=== PATIENT | female | born 1975 | race Caucasian/White ===

== ENCOUNTER 2017-10-07 15:01 | Emergency (ER) | payer SELFPAY ==
[~2017-10-07] VITALS: Ht 167.6 cm; Wt 58.0 kg
[~2017-10-07 15:01] MED LIST: BACT800T5 PO; CLIN1CAP5 PO
[2017-10-07 15:31] VITALS: BP 101/62; PULSE 62; RESP 18; TEMP 98.2; O2SAT 100
--- NOTE | 2017-10-07 17:34 | PD ---
HPI Chief Complaint: Skin Problem Time Seen by Provider: 17:02 Travel History International Travel<30 days: No Contact w/Intl Traveler<30days: No Traveled to known affect area: No History of Present Illness HPI 42-year-old female came to the emergency room with history of multiple sores on bilateral upper extremity. Patient says that this is been going on for past couple of months. However the reason she came in today is because 1 of the sources draining significantly and causing shooting pain up her arm. Patient told me that she went to [facility] 1 month ago and was given clindamycin. She took the medication and finish the course. The source had gotten better temporarily and then came back. Patient does have history of IV drug abuse. She was extremely anxious and pacing up and down in the room. Did not want the nurse to examine her upper extremities and asked me not to touch her sores either. Patient denies of any fever or chills. Vital signs were stable. As I was finishing up my history and physical patient told me that she needs to catch a bus and hence she does not have a lot of time. She is just here for antibiotic Bactrim and amoxicillin. [facility] Past Medical History Narrative Medical List of her past medical, surgical, social and family history is reviewed from the nursing note. Medical History: Denies Significant Hx Diminished Hearing: No Reproductive: Yes ([employer]) ?: Not Past Surgical History Surgical History: No Previous Surgery Social History Alcohol Use: No Tobacco Use: Yes (1 ppd) Substance Use: Yes (marijuana regularly, quit IV durg use(morphine and heroin) 4 mos ago) Allergies-Medications (Allergen,Severity, Reaction): Coded Allergies: codeine (Unverified Allergy, Severe, Hives, 10/08/17) hydrocodone (Unverified Allergy, Mild, HIVES, 10/08/17) Comments List of her allergies reviewed from the nursing note. Reported Meds & Prescriptions Reported Meds & Active Scripts Active Mupirocin Topical (Mupirocin) 2 % Oint 1 Applic TOPICAL BID Keflex (Cephalexin) 500 Mg Cap 500 Mg PO Q12H Bactrim DS (Sulfamethoxazole-Trimethoprim) 800-160 Mg Tab 1 Tab PO BID Narrative Medication List of her home medications reviewed from the nursing note. Review of Systems Except as stated in HPI: all other systems reviewed are Neg Physical Exam Narrative GENERAL: Awake, alert, anxious, moderate distress, restless SKIN: Focused skin assessment warm/dry. Multiple dime to quarter size open sores/ulcers with serosanguineous base on the volar aspect of the bilateral upper extremities. There is one abscess on the wrist on the radial aspect that is fluctuant. All the sores seem to be superficial to an underlying vein. Patient has multiple needle track bui as well. HEAD: Atraumatic. Normocephalic. EYES: Pupils equal and round. No scleral icterus. No injection or drainage. ENT: No nasal bleeding or discharge. Mucous membranes pink and moist. NECK: Trachea midline. No JVD. CARDIOVASCULAR: Regular rate and rhythm. No murmur appreciated. RESPIRATORY: No accessory muscle use. Clear to auscultation. Breath sounds equal bilaterally. GASTROINTESTINAL: Abdomen soft, non-tender, nondistended. Hepatic and splenic margins not palpable. MUSCULOSKELETAL: No obvious deformities. No clubbing. No cyanosis. No edema. NEUROLOGICAL: Awake and alert. No obvious cranial nerve deficits. Motor grossly within normal limits. Normal speech. PSYCHIATRIC: insight and judgment normal. Extremely anxious and restless Data Data Last Documented VS Vital Signs Date Time Temp Pulse Resp B/P (MAP) Pulse Ox O2 Delivery O2 Flow Rate FiO2 10/07/17 16:55 16 10/07/17 15:31 98.2 62 101/62 (75) 100 MDM Medical Decision Making Medical Screen Exam Complete: Yes Emergency Medical Condition: Yes Medical Record Reviewed: Yes Differential Diagnosis Disseminated staph infection, abscess, MRSA infection, IV drug abuse with skin infection Narrative Course 6 PM I explained to the patient that she would require blood test, blood cultures since these are probably infections developed from IV drug abuse. She would get IV antibiotic in the process and eventually if decision is made to to discharge her home she would be given prescription for antibiotic. Patient did not want to wait to get all these tests done. I had asked her to let the nurse know about her final decision but even before the nurse went to talk to her in the room patient was gone. Patient was in full capacity to make decisions for herself. She understood the risks of leaving without tests and treatment. Procedures EKG Prior to Arrival: No Diagnosis Primary Impression: IV drug abuse Additional Impressions: Skin ulcer of multiple sites Qualified Codes: L98.499 - Non-pressure chronic ulcer of skin of other sites with unspecified severity Abscess Possible disseminated staph infection Disposition: 07 AGAINST MEDICAL ADVICE Condition: Serious Braden Moss MD Oct 07, 2017 17:34
[2017-10-08] MEDS ORDERED: MUPI2OIN TOPICAL (21:53)
[2017-10-08] MEDS ORDERED: BACT800T5 PO (21:53)
[2017-10-08] MEDS ORDERED: CEPH-460 PO (21:53)
== END 2017-10-07 17:40 | disposition left against medical advice (07) ==
LOC: NEPD 15:01
DX: F19.10 Other psychoactive substance abuse, uncomplicated (principal); L98.499 Non-pressure chronic ulcer of skin of other sites with unspecified severity; L02.419 Cutaneous abscess of limb, unspecified; F12.90 Cannabis use, unspecified, uncomplicated; F17.200 Nicotine dependence, unspecified, uncomplicated; Z53.20 Procedure and treatment not carried out because of patient's decision for unspecified reasons
CPT/HCPCS: 99281

== ENCOUNTER 2017-10-08 17:49 | Emergency (ER) | payer SELFPAY ==
[~2017-10-08] VITALS: Ht 167.6 cm; Wt 60.0 kg
[2017-10-08 18:30] VITALS: BP 101/50; PULSE 67; RESP 16; TEMP 98.4; O2SAT 98
[2017-10-08] MEDS ORDERED: CEPHALEXIN MONOHYDRATE 500 MG CAP PO ONE (21:45)
[2017-10-08] MEDS ORDERED: SULFAMETHOXAZOLE-TRIMETHOPRIM DS 800-160 MG TAB PO ONE (21:45)
[2017-10-08] MEDS ORDERED: CEPH-460 PO (21:53)
[2017-10-08] MEDS ORDERED: MUPI2OIN TOPICAL (21:53)
[2017-10-08] MEDS ORDERED: BACT800T5 PO (21:53)
--- NOTE | 2017-10-08 21:54 | PD ---
HPI Chief Complaint: Skin Problem Time Seen by Provider: 21:20 Travel History International Travel<30 days: No Contact w/Intl Traveler<30days: No Traveled to known affect area: No History of Present Illness HPI Patient is a 42-year-old female presenting to the emergency department for evaluation of skin ulcerations. Patient reportedly uses IV heroin. She states that the ulcerations started 1 week ago, they are spontaneously draining. She states that she has been cleaning them with water only and applying Band-Aids. She denies any fever, chills, nausea, vomiting. She states they normally drain and then scab up. Symptom onset was gradual, symptoms are moderate in nature. Symptoms are exacerbated by IV drug use. She has no other complaints at this time. Patient is requesting oral antibiotics only. [facility] Past Medical History Diminished Hearing: No Reproductive: Yes ([employer]) Immunizations Current: Yes ?: Not Past Surgical History Surgical History: No Previous Surgery Social History Alcohol Use: No Tobacco Use: Yes (1 ppd) Substance Use: Yes (marijuana, IV durg use morphine and heroin) Allergies-Medications (Allergen,Severity, Reaction): Coded Allergies: codeine (Unverified Allergy, Severe, Hives, 10/08/17) hydrocodone (Unverified Allergy, Mild, HIVES, 10/08/17) Reported Meds & Prescriptions Reported Meds & Active Scripts Active No Active Prescriptions or Reported Medications Review of Systems Except as stated in HPI: all other systems reviewed are Neg Skin: Positive Change in Pigmentation, Positive Lesions Physical Exam Narrative GENERAL: Well-developed, well-nourished, alert female. Presenting in no acute distress. SKIN: Warm and dry. Patient has 5 superficial ulcerations to the left forearm distal to the elbow from 1 cm to 2 cm, draining purulent drainage. 1 cm of induration surrounding the area of ulcerations. No fluctuance noted. Patient also has scabbed lesions to the right forearm HEAD: Atraumatic. Normocephalic. EYES: Pupils equal and round. No scleral icterus. No injection or drainage. ENT: No nasal bleeding or discharge. Mucous membranes pink and moist. NECK: Trachea midline. No JVD. CARDIOVASCULAR: Regular rate and rhythm. RESPIRATORY: No accessory muscle use. Clear to auscultation. Breath sounds equal bilaterally. GASTROINTESTINAL: Abdomen soft, non-tender, nondistended. Hepatic and splenic margins not palpable. MUSCULOSKELETAL: Extremities without clubbing, cyanosis, or edema. No obvious deformities. NEUROLOGICAL: Awake and alert. No obvious cranial nerve deficits. Motor grossly within normal limits. Five out of 5 muscle strength in the arms and legs. Normal speech. PSYCHIATRIC: Appropriate mood and affect; insight and judgment normal. Data Data Last Documented VS Vital Signs Date Time Temp Pulse Resp B/P (MAP) Pulse Ox O2 Delivery O2 Flow Rate FiO2 10/08/17 18:30 98.4 67 16 101/50 (67) 98 Orders Orders Sulfamet-Trimeth Ds 800-160 Mg (Bactrim (10/08/17 21:45) Cephalexin (Keflex) (10/08/17 21:45) MDM Medical Decision Making Medical Screen Exam Complete: Yes Emergency Medical Condition: Yes Interpretation(s) Vital Signs Date Time Temp Pulse Resp B/P (MAP) Pulse Ox O2 Delivery O2 Flow Rate FiO2 10/08/17 18:30 98.4 67 16 101/50 (67) 98 Differential Diagnosis Cellulitis versus abscess versus dermatitis versus metabolic abnormality versus other Narrative Course Patient is a 42-year-old female presenting for evaluation of multiple skin abscesses. Her vital signs are stable, she is afebrile and well-appearing. Patient was offered dalvance, she refused stating she only wanted oral antibiotics. Patient would not allow areas to be cleaned or palpated. Patient multiple Band-Aids covering the ulcerations, wounds were redressed with wet-to- dry dressings. She was given strict return precautions. She is encouraged to maintain compliance with oral antibiotics, completing full course even if she began to feel better. She verbalized understanding of these instructions. Patient stable for discharge. Patient was given first dose of antibiotics in the emergency department. Diagnosis Primary Impression: Abscess Additional Impression: IV drug user Referrals: [facility] Patient Instructions: Abscess (GEN), General Instructions Additional Instructions: Keep wounds clean and dry, apply wet-to-dry dressings as discussed Complete full course of antibiotics as prescribed, complete even if you begin to see resolution of symptoms Return to emergency department immediately for any new worsening symptoms Follow-up at the [facility] Med/Other Pt SpecificInfo: Prescription(s) given Scripts Mupirocin Topical (Mupirocin Topical) 2 % Oint 1 APPLIC TOPICAL BID for Mgmt Bacterial Infection, #22 GM 0 Refills Prov: Teresa Franks 10/08/17 Cephalexin (Keflex) 500 Mg Cap 500 MG PO Q12H for Infection, #20 CAP 0 Refills Prov: Teresa Franks 10/08/17 Sulfamethoxazole-Trimethoprim (Bactrim DS) 800-160 Mg Tab 1 TAB PO BID for Infection, #20 TAB 0 Refills Prov: Teresa Franks 10/08/17 Disposition: 01 DISCHARGE HOME Condition: Stable Teresa Franks Oct 08, 2017 21:53
== END 2017-10-08 22:04 | disposition home or self-care (01) ==
LOC: NEPD 17:49
DX: L02.414 Cutaneous abscess of left upper limb (principal); L02.413 Cutaneous abscess of right upper limb; B96.89 Other specified bacterial agents as the cause of diseases classified elsewhere; F11.90 Opioid use, unspecified, uncomplicated; F12.90 Cannabis use, unspecified, uncomplicated; F17.200 Nicotine dependence, unspecified, uncomplicated
CPT/HCPCS: 87070; 87077; 87186; 87205; 99283